=== PATIENT | female | born 1955 | race Caucasian/White ===

== ENCOUNTER 2019-05-26 07:57 | Day surgery (SDC) | payer OTHER ==
[2019-05-26] MEDS ORDERED: MIDAZOLAM 1 MG/ML 2 ML INJ ×2 (10:37)
[2019-05-26] MEDS ORDERED: FENTAnyl 50 MCG/ML VIAL (10:37)
== END 2019-05-26 14:04 | disposition home or self-care (01) ==
LOC: GIL 07:57
DX: Z12.11 Encounter for screening for malignant neoplasm of colon (principal); K64.8 Other hemorrhoids; K44.9 Diaphragmatic hernia without obstruction or gangrene; K21.9 Gastro-esophageal reflux disease without esophagitis
CPT/HCPCS: 43239; 88305; 88312